=== PATIENT | female | born 1955 | race Caucasian/White ===

== ENCOUNTER 2018-08-28 13:25 | Outpatient (CLI) | payer OTHER | END 2018-08-28 13:26 | disposition home or self-care (01) | LOC: LAB 13:25 | PROVIDERS: ATTEND Physician Assistant | DX: E87.6 Hypokalemia (principal); E11.59 Type 2 diabetes mellitus with other circulatory complications | CPT/HCPCS: 36415; 84132 ==

== ENCOUNTER 2020-05-07 20:39 | Emergency (ER) | payer OTHER ==
[2020-05-07] MEDS ORDERED: ASPIRIN CHEW 81 MG TABLET PO STA (20:51)
[2020-05-07 21:01] LABS: BASOPHILS # (AUTO) 0.1 10^3/uL (0.0-0.1); BASOPHILS % (AUTO) 0.5 %; EOSINOPHILS # (AUTO) 0.3 10^3/uL (0.0-0.7); EOSINOPHILS % (AUTO) 3.2 %; HGB - HEMOGLOBIN 12.6 g/dL (12.0-16.0); LYMPHOCYTES % (AUTO) 42.5 %; MEAN CORPUSCULAR HEMOGLOBIN 27.8 pg (27.0-31.0); MEAN CORPUSCULAR HGB CONC 32.2 g/dL (32.0-36.0); MEAN CORPUSCULAR VOLUME 86.3 fL (81.0-99.0); MEAN PLATELET VOLUME 8.6 fL (7.9-10.8); MONOCYTES # (AUTO) 0.6 10^3/uL (0.0-1.0); MONOCYTES % (AUTO) 6.4 %; NEUTROPHILS # (AUTO) 4.4 10^3/uL (1.5-6.6); NEUTROPHILS % (AUTO) 46.9 %; PLT - PLATELET COUNT 291 10^3/uL (130-450); RED BLOOD COUNT 4.53 10^6/uL (4.20-5.40); RED CELL DISTRIBUTION WIDTH 13.1 % (12.0-15.0); WHITE BLOOD COUNT 9.4 x10^3/uL (4.8-10.8)
--- NOTE | 2020-05-07 21:11 | ED Physician Documentation ---
PD HPI CHEST PAIN - Stated complaint Stated Complaint: CHEST TIGHTNESS - Chief complaint Chief Complaint: Cardiac - History obtained from History obtained from: Patient - History of Present Illness Timing - onset: Enter time (19:40) Timing - onset during: Light activity Timing - duration: Seconds Timing - details: Abrupt onset, Intermittant (episodic) Pain level now: 0 Quality: Other (squeezing, per patient) Radiation: Other (no radiation) Improved by: Nothing Worsened by: Other (no exacerbating factors) Associated symptoms: No: Shortness of air, Diaphoresis, Nausea, Vomiting, Feeling faint / dizzy, General Weakness, Palpitations, Cough Similar symptoms before: Has not had sx before Recently seen: Not recently seen - Additional information Additional information: since 7:40 PM today, patient has had episodes of squeezing sensation in midline lower chest. Initially began when she was unloading boxes from a truck although she says the boxes were light (was not strenuous exertion). She says she has had several more such episodes including while in ED awaiting evaluation. she says the symptoms last no more than one second when she has an episode Review of Systems Cardiac: reports: Chest pain / pressure (episodic chest squeezing, lasting nor more than 1-2 seconds per episode). 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 : Kidney stones HEENT: None Psych: Panic attacks Musculoskeletal: Osteoarthritis Derm: Rosacea - Past Surgical History Past Surgical History: Yes General: Cholecystectomy, Appendectomy - Present Medications Home Medications: Ambulatory Orders Medication Instructions Recorded Confirmed Aspirin [Aspirin EC] 81 mg PO DAILY 03/29/14 03/21/16 Esomeprazole Magnesium [Nexium] 0 mg PO DAILY 03/29/14 03/21/16 Simvastatin 0 mg PO DAILY 03/29/14 03/21/16 Telmisartan [Micardis] 0 mg PO DAILY 03/29/14 03/21/16 Dulaglutide [Trulicity] 05/07/20 Metoprolol Succinate [Toprol Xl] 0 mg PO BID 05/07/20 05/07/20 metFORMIN [Glucophage] BID 05/07/20 - Allergies Allergies/Adverse Reactions: Allergies Allergy/AdvReac Type Severity Reaction Status Date / Time erythromycin base Allergy Nausea Verified 05/07/20 20:53 [Erythromycin Base] Penicillins Allergy Rash Verified 05/07/20 20:53 sulfamethoxazole Allergy Itching Verified 05/07/20 20:53 [From Septra] trimethoprim [From Septra] Allergy Itching Verified 05/07/20 20:53 ranitidine HCl * AdvReac Headache Verified 05/07/20 20:53 [From Zantac] - Social History Does the pt smoke?: No Smoking Status: Never smoker Does the pt drink ETOH?: Yes Does the pt have substance abuse?: No - Immunizations Immunizations are current?: Yes - POLST Patient has POLST: No PD ED PE NORMAL - Vitals Vital signs reviewed: Yes - General General: Alert and oriented X 3, No acute distress, Well developed/nourished - HEENT HEENT: Moist mucous membranes - Neck Neck: Supple, no meningeal sign - Cardiac Cardiac: RRR, No murmur, No gallop, No rub - Respiratory Respiratory: No respiratory distress, Clear bilaterally - Abdomen Abdomen: Soft, Non tender - Derm Derm: Normal color, Warm and dry - Extremities Extremities: No edema Results - Vitals Vitals: Vital Signs - 24 hr 05/07/20 05/07/20 05/07/20 20:50 21:14 21:30 Temperature 36.9 C 36.8 C Heart Rate 91 92 90 Respiratory 20 20 Rate Blood Pressure 147/71 H 164/134 H 132/55 H O2 Saturation 100 98 98 05/07/20 21:57 Temperature 36.5 C Heart Rate 89 Respiratory 13 Rate Blood Pressure 119/49 L O2 Saturation 98 Oxygen O2 Source Room air - EKG (time done) No standard instances Rate: Rate (enter#) (93) Rhythm: NSR [place]: Normal QRS: LVH Ischemia: Normal ST segments, Q waves (isolated to lead III) - Labs Labs: Laboratory Tests 05/07/20 05/07/20 05/07/20 20:55 20:55 20:55 WBC 9.4 RBC 4.53 Hgb 12.6 Hct 39.1 MCV 86.3 MCH 27.8 MCHC 32.2 RDW 13.1 Plt Count 291 MPV 8.6 Neut # (Auto) 4.4 Lymph # (Auto) 4.0 H [place] # (Auto) 0.6 Eos # (Auto) 0.3 Baso # (Auto) 0.1 Absolute Nucleated RBC 0.00 Nucleated RBC % 0.0 Sodium 136 Potassium 4.3 Chloride 99 L Carbon Dioxide 26 Anion Gap 11.0 BUN 16 Creatinine 0.7 Estimated GFR (MDRD) 85 L Glucose 217 H Calcium 9.2 Total Bilirubin 0.7 AST 19 ALT 21 Alkaline Phosphatase 75 Troponin I High Sens < 2.3 L Total Protein 7.3 Albumin 4.1 Globulin 3.2 Albumin/Globulin Ratio 1.3 Lipase 58 H - Rads (name of study) chest xray Radiology: Prelim report reviewed, See rad report PD MEDICAL DECISION MAKING - ED course Complexity details: reviewed results, re-evaluated patient, considered differential, d/w patient ED course: reassuring w/u including EKG, CXR, and blood work that includes normal high sensitivity troponin. Her symptom of a squeezing sensation in her lower midline chest that lasts about 1 second per episode is not s/o CAD or other emergent process Departure - Departure Disposition: 01 Home, Self Care Clinical Impression: Chest pain Condition: Good Instructions: ED Chest Pain Atypical Unkn Cause Comments: Follow up with your process control technician; call to arrange for next available appointment Discharge Date/Time: 05/07/20 22:01
[2020-05-07 21:13] LABS: ALBUMIN 4.1 g/dL (3.2-5.5); ALBUMIN/GLOBULIN RATIO 1.3 (1.0-2.2); BILIRUBIN,TOTAL 0.7 mg/dL (0.2-1.0); CALCIUM 9.2 mg/dL (8.5-10.3); CREATININE 0.7 mg/dL (0.4-1.0); TOTAL PROTEIN 7.3 g/dL (6.7-8.2)
--- NOTE | 2020-05-07 21:25 | XRAY Report ---
PROCEDURE: Chest 1 View X-Ray INDICATIONS: Chest Pain TECHNIQUE: One view of the chest was acquired. COMPARISON: CXR 09/30/2015. FINDINGS: Surgical changes and devices: None. Lungs and pleura: No pleural effusions or pneumothorax. Lungs are clear. Mediastinum: Mediastinal contours appear normal and unchanged. Heart size is normal. Bones and chest wall: No suspicious bony lesions. Overlying soft tissues appear unremarkable. IMPRESSION: No acute cardiopulmonary abnormality. Reviewed by: Mt Payton MD on 05/07/2020 9:24 PM PDT Approved by: Mt Payton MD on 05/07/2020 9:24 PM PDT Station ID: [id number]
[2020-05-07 21:59] VITALS: BP 119/49
== END 2020-05-07 22:01 | disposition home or self-care (01) ==
LOC: ED 20:39
DX: R07.89 Other chest pain (principal); E11.9 Type 2 diabetes mellitus without complications; Z79.84 Long term (current) use of oral hypoglycemic drugs; Z79.82 Long term (current) use of aspirin
CPT/HCPCS: 36415; 71045; 80053; 83690; 84484; 85025; 93005; 99284; A9270

== ENCOUNTER 2020-09-12 20:11 | Emergency (ER) | payer OTHER ==
--- NOTE | 2020-09-12 20:23 | ED Physician Documentation ---
History of Present Illness - Stated complaint Stated Complaint: HEART PALPITATIONS - Chief complaint Chief Complaint: Cardiac - History obtained from History obtained from: Patient - History of Present Illness Timing: Enter time (16:00), Today Pain level max: 0 Pain level now: 0 Improved by: nothing Worsened by: no exacerbating factors - Additonal information Additional information: c/o frequent palpitations since 4 PM today. She has had similar palpitations many times in the past and has had testing both inpatient, in ED, and outpatient settings; thus far, only PVCs have been noted, and no etiology of PVCs has been found. She is on a beta-enoch which at one time was doubled in dose, but this resulted in hypotension and thus resumed on previous dose. She says she has episodes of these palpitations every few months without apparent causative /inciting factor(s). She denies any pain. Review of Systems Constitutional: denies: Fever, Chills, Sweats Cardiac: reports: Palpitations. 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 : Kidney stones HEENT: None Psych: Panic attacks Musculoskeletal: Osteoarthritis Derm: Rosacea - Past Surgical History Past Surgical History: Yes General: Cholecystectomy, Appendectomy - Present Medications Home Medications: Ambulatory Orders Medication Instructions Recorded Confirmed Telmisartan [Micardis] 20 mg PO DAILY 03/29/14 09/12/20 metFORMIN [Glucophage] 1,000 mg PO BID 05/07/20 09/12/20 Aspirin [Aspirin EC] 81 mg PO DAILY 09/12/20 09/12/20 Dulaglutide [Trulicity] 1.5 mg SQ DAILY 09/12/20 09/12/20 LORazepam [Ativan] 0.5 - 1 mg PO HS PRN #14 09/12/20 Magnesium Oxide 500 mg PO DAILY 09/12/20 09/12/20 Metoprolol Succinate [Toprol Xl] 25 mg PO BID 09/12/20 09/12/20 Simvastatin [Zocor] 20 mg PO HS 09/12/20 09/12/20 Ubidecarenone/Vit E Acet [Co Q-10 2 each PO DAILY 09/12/20 09/12/20 100 mg Softgel] - Allergies Allergies/Adverse Reactions: Allergies Allergy/AdvReac Type Severity Reaction Status Date / Time erythromycin base Allergy Nausea Verified 09/12/20 20:14 [Erythromycin Base] Penicillins Allergy Rash Verified 09/12/20 20:14 sulfamethoxazole Allergy Itching Verified 09/12/20 20:14 [From Septra] trimethoprim [From Septra] Allergy Itching Verified 09/12/20 20:14 ranitidine HCl * AdvReac Headache Verified 09/12/20 20:14 [From Zantac] - Social History Does the pt smoke?: No Smoking Status: Never smoker Does the pt drink ETOH?: Yes Does the pt have substance abuse?: No - Immunizations Immunizations are current?: Yes - POLST Patient has POLST: No PD ED PE NORMAL - Vitals Vital signs reviewed: Yes - General General: Alert and oriented X 3, No acute distress, Well developed/nourished - HEENT HEENT: Moist mucous membranes - Neck Neck: Supple, no meningeal sign - Cardiac Cardiac: RRR, No murmur, No gallop, No rub - Respiratory Respiratory: No respiratory distress, Clear bilaterally - Abdomen Abdomen: Soft, Non tender - Extremities Extremities: No edema Results - Vitals Vitals: Vital Signs - 24 hr 09/12/20 09/12/20 09/12/20 20:14 20:52 21:00 Temperature 36.5 C Heart Rate 108 H 104 H 101 H Respiratory 24 18 18 Rate Blood Pressure 153/81 H 162/86 H 162/86 H O2 Saturation 99 97 100 09/12/20 09/12/20 21:30 22:00 Temperature Heart Rate 97 74 Respiratory 22 17 Rate Blood Pressure 162/89 H 107/71 O2 Saturation 98 100 Oxygen O2 Source Room air - EKG (time done) No standard instances Rate: Rate (enter#) (105) Rhythm: Sinus tachycardia Ischemia: Q waves (isolated QIII), Non specific changes (V2-V4 (inverted/flat Ts)) Other comments: Other comments (PAC) Compare to prior EKG: Unchanged from prior EKG Computer interpretation: Agree with computer - Labs Labs: Laboratory Tests 09/12/20 09/12/20 09/12/20 20:30 20:30 20:30 WBC 9.5 RBC 5.07 Hgb 13.9 Hct 43.7 MCV 86.2 MCH 27.4 MCHC 31.8 L RDW 12.9 Plt Count 308 MPV 8.4 Neut # (Auto) 4.6 Lymph # (Auto) 4.1 H [place] # (Auto) 0.7 Eos # (Auto) 0.2 Baso # (Auto) 0.0 Absolute Nucleated RBC 0.00 Nucleated RBC % 0.0 Sodium 137 Potassium 4.0 Chloride 97 L Carbon Dioxide 24 Anion Gap 16.0 H BUN 13 Creatinine 0.7 Estimated GFR (MDRD) 85 L Glucose 238 H Calcium 9.8 Magnesium Total Bilirubin 0.5 AST 34 ALT 42 Alkaline Phosphatase 95 Troponin I High Sens < 2.3 L Total Protein 7.4 Albumin 4.1 Globulin 3.3 Albumin/Globulin Ratio 1.2 Lipase 48 09/12/20 20:30 WBC RBC Hgb Hct MCV MCH MCHC RDW Plt Count MPV Neut # (Auto) Lymph # (Auto) [place] # (Auto) Eos # (Auto) Baso # (Auto) Absolute Nucleated RBC Nucleated RBC % Sodium Potassium Chloride Carbon Dioxide Anion Gap BUN Creatinine Estimated GFR (MDRD) Glucose Calcium Magnesium 1.7 Total Bilirubin AST ALT Alkaline Phosphatase Troponin I High Sens Total Protein Albumin Globulin Albumin/Globulin Ratio Lipase - Rads (name of study) chest xray Radiology: Prelim report reviewed, See rad report PD MEDICAL DECISION MAKING - ED course Complexity details: reviewed results, re-evaluated patient, considered differential, d/w patient ED course: occasional PACs on monitor which correlate with patient's palpitations (she would say that she was having a palpitation when a PAC appeared on monitor). The PACs were only occasional and there were no paired beats nor runs of arrhythmia. Reassuring blood tests. No emergent condition identified at this time and no specific treatment is indicated, particularly considering her reported history of hypotension with high dose of beta-enoch. Departure - Departure Disposition: 01 Home, Self Care Clinical Impression: Palpitations Condition: Good Instructions: ED Palpitations Follow-Up: GISSELLE ALEXANDER MD [Primary Care Provider] - Prescriptions: LORazepam [Ativan] 0.5 - 1 mg PO HS PRN #14 PRN Reason: Insomnia Discharge Date/Time: 09/12/20 22:44
[2020-09-12 20:36] LABS: BASOPHILS % (AUTO) 0.4 %; EOSINOPHILS # (AUTO) 0.2 10^3/uL (0.0-0.7); EOSINOPHILS % (AUTO) 2.2 %; HGB - HEMOGLOBIN 13.9 g/dL (12.0-16.0); LYMPHOCYTES # (AUTO) 4.1 10^3/uL (1.5-3.5); LYMPHOCYTES % (AUTO) 42.5 %; MEAN CORPUSCULAR HEMOGLOBIN 27.4 pg (27.0-31.0); MEAN CORPUSCULAR HGB CONC 31.8 g/dL (32.0-36.0); MEAN CORPUSCULAR VOLUME 86.2 fL (81.0-99.0); MEAN PLATELET VOLUME 8.4 fL (7.9-10.8); MONOCYTES # (AUTO) 0.7 10^3/uL (0.0-1.0); MONOCYTES % (AUTO) 6.8 %; NEUTROPHILS # (AUTO) 4.6 10^3/uL (1.5-6.6); NEUTROPHILS % (AUTO) 47.9 %; PLT - PLATELET COUNT 308 10^3/uL (130-450); RED BLOOD COUNT 5.07 10^6/uL (4.20-5.40); RED CELL DISTRIBUTION WIDTH 12.9 % (12.0-15.0); WHITE BLOOD COUNT 9.5 x10^3/uL (4.8-10.8)
[2020-09-12 20:54] LABS: ALBUMIN 4.1 g/dL (3.2-5.5); ALBUMIN/GLOBULIN RATIO 1.2 (1.0-2.2); BILIRUBIN,TOTAL 0.5 mg/dL (0.2-1.0); CALCIUM 9.8 mg/dL (8.5-10.3); CREATININE 0.7 mg/dL (0.4-1.0); TOTAL PROTEIN 7.4 g/dL (6.7-8.2)
--- NOTE | 2020-09-12 20:58 | XRAY Report ---
PROCEDURE: Chest 1 View X-Ray INDICATIONS: Chest pain TECHNIQUE: One view of the chest was acquired. COMPARISON: Prior chest plain film 05/07/2020 FINDINGS: Surgical changes and devices: None. Lungs and pleura: No pleural effusions or pneumothorax. Lungs are clear. Mediastinum: Mediastinal contours appear normal. Heart size is normal. Bones and chest wall: No suspicious bony lesions. Overlying soft tissues appear unremarkable. IMPRESSION: Normal for age, source of current symptoms is not seen. Reviewed by: Joss Crandall MD on 09/12/2020 8:57 PM PST Approved by: Joss Crandall MD on 09/12/2020 8:57 PM PST Station ID: [id number]
[2020-09-12 22:22] VITALS: BP 107/71
== END 2020-09-12 22:44 | disposition home or self-care (01) ==
LOC: ED 20:11
DX: R00.2 Palpitations (principal); R00.0 Tachycardia, unspecified; E11.9 Type 2 diabetes mellitus without complications; Z79.84 Long term (current) use of oral hypoglycemic drugs
CPT/HCPCS: 36415; 80053; 83690; 83735; 84484; 85025; 93005; 99284

== ENCOUNTER 2021-09-26 17:46 | Emergency (ER) | payer OTHER ==
[2021-09-26 18:13] LABS: BASOPHILS % (AUTO) 0.4 %; EOSINOPHILS # (AUTO) 0.3 10^3/uL (0.0-0.7); EOSINOPHILS % (AUTO) 3.2 %; HCT - HEMATOCRIT 42.4 % (37.0-47.0); HGB - HEMOGLOBIN 13.9 g/dL (12.0-16.0); LYMPHOCYTES # (AUTO) 4.3 10^3/uL (1.5-3.5); LYMPHOCYTES % (AUTO) 46.4 %; MEAN CORPUSCULAR HEMOGLOBIN 27.9 pg (27.0-31.0); MEAN CORPUSCULAR HGB CONC 32.8 g/dL (32.0-36.0); MEAN CORPUSCULAR VOLUME 85.1 fL (81.0-99.0); MEAN PLATELET VOLUME 8.7 fL (7.9-10.8); MONOCYTES # (AUTO) 0.6 10^3/uL (0.0-1.0); NEUTROPHILS # (AUTO) 4.1 10^3/uL (1.5-6.6); NEUTROPHILS % (AUTO) 43.8 %; PLT - PLATELET COUNT 335 10^3/uL (130-450); RED BLOOD COUNT 4.98 10^6/uL (4.20-5.40); RED CELL DISTRIBUTION WIDTH 13.2 % (12.0-15.0); WHITE BLOOD COUNT 9.3 x10^3/uL (4.8-10.8)
--- NOTE | 2021-09-26 18:27 | ED Physician Documentation ---
PD HPI CHEST PAIN - Stated complaint Stated Complaint: CHEST PAIN - Chief complaint Chief Complaint: Cardiac - History obtained from History obtained from: Patient - History of Present Illness Timing - onset: Last night Timing - duration: Seconds (1-2) Quality: No: Pressure, Tightness, Aching, Sharp, Tearing, Dull, Stabbing, Throbbing, Indigestion, Like prior ACS, Pain Location: Left chest Radiation: No: Jaw, Neck, Back, Abdominal, Left upper extremity, Right upper extremity Improved by: Nothing. No: Rest, Oxygen, Nitro, ASA, Antacids, Other medication Worsened by: No: Exertion, Inspiration, Eating, Movement, Palpation, Position Associated symptoms: No: Shortness of air, Diaphoresis, Nausea, Vomiting, Feeling faint / dizzy, General Weakness, Palpitations, Cough - Additional information Additional information: 66-year-old female with chest pain since last night. She describes it as sharp, lasting 1 to 2 seconds. She then feels a dull ache. Currently is asymptomatic. Nothing makes it better or worse. Has had similar symptoms previously and told they were premature ventricular contractions. She states that this pain felt slightly different however. 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 : Kidney stones HEENT: None Psych: Panic attacks Musculoskeletal: Osteoarthritis Derm: Rosacea - Past Surgical History Past Surgical History: Yes General: Cholecystectomy, Appendectomy - Present Medications Home Medications: Ambulatory Orders Medication Instructions Recorded Confirmed metFORMIN [Glucophage] 1,000 mg PO BID 05/07/20 09/26/21 Aspirin [Aspirin EC] 81 mg PO DAILY 09/12/20 09/26/21 Dulaglutide [Trulicity] 1.5 mg SQ ONCE 09/12/20 09/26/21 Magnesium Oxide 500 mg PO DAILY 09/12/20 09/26/21 Metoprolol Succinate [Toprol Xl] 25 mg PO BID 09/12/20 09/26/21 Simvastatin [Zocor] 20 mg PO HS 09/12/20 09/26/21 Ubidecarenone/Vit E Acet [Co Q-10 2 each PO DAILY 09/12/20 09/26/21 100 mg Softgel] - Allergies Allergies/Adverse Reactions: Allergies Allergy/AdvReac Type Severity Reaction Status Date / Time erythromycin base Allergy Nausea Verified 09/26/21 17:52 [Erythromycin Base] Penicillins Allergy Rash Verified 09/26/21 17:52 sulfamethoxazole Allergy Itching Verified 09/26/21 17:52 [From Septra] trimethoprim [From Septra] Allergy Itching Verified 09/26/21 17:52 ranitidine HCl * AdvReac Headache Verified 09/26/21 17:52 [From Zantac] - Social History Does the pt smoke?: No Smoking Status: Never smoker Does the pt drink ETOH?: Yes Does the pt have substance abuse?: No - Immunizations Immunizations are current?: Yes - POLST Patient has POLST: No PD ED PE NORMAL - Vitals Vital signs reviewed: Yes - General General: Alert and oriented X 3, No acute distress, Well developed/nourished - HEENT HEENT: Moist mucous membranes - Neck Neck: Supple, no meningeal sign - Cardiac Cardiac: RRR, No murmur, Strong equal pulses - Respiratory Respiratory: No respiratory distress, Clear bilaterally - Abdomen Abdomen: Soft, Non tender, Non distended - Derm Derm: Warm and dry - Extremities Extremities: No edema, No calf tenderness / cord - Neuro Neuro: Alert and oriented X 3 - Psych Psych: Normal mood, Normal affect - Free text exam Free text exam: No chest wall tenderness. Results - Vitals Vitals: Vital Signs - 24 hr 09/26/21 17:53 Temperature 36.4 C L Heart Rate 93 Respiratory 18 Rate Blood Pressure 176/80 H O2 Saturation 98 Oxygen O2 Source Room air - EKG (time done) 1758 Rate: Rate (enter#) (92) Rhythm: NSR [place]: Normal Intervals: Normal [place] QRS: Normal Ischemia: Normal ST segments, Q waves (III, aVF) - Labs Labs: Laboratory Tests 09/26/21 09/26/21 09/26/21 18:05 18:05 18:05 WBC 9.3 RBC 4.98 Hgb 13.9 Hct 42.4 MCV 85.1 MCH 27.9 MCHC 32.8 RDW 13.2 Plt Count 335 MPV 8.7 Neut # (Auto) 4.1 Lymph # (Auto) 4.3 H [place] # (Auto) 0.6 Eos # (Auto) 0.3 Baso # (Auto) 0.0 Absolute Nucleated RBC 0.00 Nucleated RBC % 0.0 Sodium 137 Potassium 4.2 Chloride 102 Carbon Dioxide 24 Anion Gap 11.0 BUN 19 Creatinine 0.6 Estimated GFR (MDRD) 101 Glucose 116 H Calcium 9.9 Total Bilirubin 0.5 AST 20 ALT 21 Alkaline Phosphatase 58 Troponin I High Sens 2.5 Total Protein 7.9 Albumin 4.5 Globulin 3.4 Albumin/Globulin Ratio 1.3 Lipase 84 H - Rads (name of study) cxr Radiology: Final report received, EMP read contemporaneously, See rad report (No acute disease) PD MEDICAL DECISION MAKING - ED course Complexity details: reviewed results, re-evaluated patient, considered differential (No ST elevation ND, no aortic dissection, no PE, no tension pneumothorax, no aortic aneurysm), d/w patient ED course: 66-year-old female with chest pain of unclear etiology. Symptoms are not consistent with acute coronary syndrome or PE. We will continue supportive care and have her follow-up with her doctor for further care. No acute findings on chest x-ray, EKG, telemetry. Symptoms did occur in the emergency department and there were no changes on telemetry. The pain only lasts for 1 to 2 seconds. Patient counseled regarding signs and symptoms for which I believe and urgent re-evaluation would be necessary. Patient with good understanding of and agreement to plan and is comfortable going home at this time This document was made in part using voice recognition software. While efforts are made to proofread this document, sound alike and grammatical errors may occur. Departure - Departure Disposition: 01 Home, Self Care Clinical Impression: Chest pain Qualifiers: Chest pain type: unspecified Qualified Code(s): R07.9 - Chest pain, unspecified Condition: Good Instructions: ED Chest Pain Atypical Unkn Cause Follow-Up: GISSELLE ALEXANDER MD [Primary Care Provider] - Within 1 week Comments: The cause of your symptoms is unclear today. Your testing does not reveal any acute abnormalities. Please return if you worsen. I would recommend Motrin or Tylenol as needed for pain.
[2021-09-26 18:32] LABS: ALBUMIN 4.5 g/dL (3.2-5.5); ALBUMIN/GLOBULIN RATIO 1.3 (1.0-2.2); BILIRUBIN,TOTAL 0.5 mg/dL (0.2-1.0); CALCIUM 9.9 mg/dL (8.5-10.3); CREATININE 0.6 mg/dL (0.4-1.0); POTASSIUM 4.2 mmol/L (3.5-5.0); TOTAL PROTEIN 7.9 g/dL (6.7-8.2)
--- NOTE | 2021-09-26 18:38 | XRAY Report ---
PROCEDURE: Chest 1 View X-Ray INDICATIONS: Chest Pain TECHNIQUE: One view of the chest was acquired. COMPARISON: 09/12/2020 FINDINGS: Surgical changes and devices: None. Lungs and pleura: No pleural effusions or pneumothorax. Lungs are clear. Mediastinum: Mediastinal contours appear normal. Heart size is normal. Bones and chest wall: No suspicious bony lesions. Overlying soft tissues appear unremarkable. IMPRESSION: Stable examination of the chest. No acute cardiopulmonary abnormalities or focal airspace disease. Reviewed by: Kostas Frances MD on 09/26/2021 6:37 PM PST Approved by: Kostas Frances MD on 09/26/2021 6:37 PM PST Station ID: [id number]
[2021-09-26 19:17] VITALS: BP 126/72
== END 2021-09-26 19:21 | disposition home or self-care (01) ==
LOC: ED 17:46
DX: R07.9 Chest pain, unspecified (principal); E11.9 Type 2 diabetes mellitus without complications; Z79.84 Long term (current) use of oral hypoglycemic drugs
CPT/HCPCS: 36415; 80053; 83690; 84484; 85025; 93005; 99284

== ENCOUNTER 2023-01-25 09:37 | Outpatient (CLI) | payer MEDICARE, OTHER ==
--- NOTE | 2023-01-28 08:55 | Mammography Report ---
BILATERAL DIGITAL SCREENING MAMMOGRAM 3D/2D: 01/25/2023 CLINICAL: Routine screening. Comparison is made to exams dated: 10/17/2021 mammogram, 05/13/2017 mammogram, 12/25/2018 mammogram, mammogram, and 03/25/2012 mammogram - [facility]. There are scattered areas of fibroglandular density in both breasts (category b / 25%-50% glandular t issue). No significant masses, calcifications, or other findings are seen in either breast. There has been no significant interval change. IMPRESSION: NEGATIVE There is no mammographic evidence of malignancy. A 1 year screening mammogram is recommended. Based on the Tyrer Cuzick model (a risk assessment model) the patients lifetime risk is 4.4% and her 10 year risk is 2.1%. According to the ACR, ACS, and NCCN guidelines, an annual breast MRI exam wen g with mammogram is recommended if the patients lifetime risk is 20% or greater. This exam was interpreted at Station ID: [id number]. NOTE: For mammograms, a report in lay terms will be sent to the patient. Approximately 15% of breast malignancies will not be visualized mammographically. In the management of a palpable breast mass, a negative mammogram must not discourage biopsy of a clinically suspicious lesion. Electronically Signed By: Kostas patino/isaac:01/25/2023 10:18:30 letter sent: No_Letter ACR BI-RADS Category 1: Negative 3341F PARENCHYMAL PATTERN: (A) - The breast(s) demonstrate(s) scattered fibroglandular densities. BI-RADS CATEGORY: (1) - 1 Mammogram [id number] 1 year screening LATERALITY: (B)
== END 2023-01-25 09:38 | disposition home or self-care (01) ==
LOC: DI 09:37
PROVIDERS: ATTEND Internal Medicine
DX: Z12.31 Encounter for screening mammogram for malignant neoplasm of breast (principal)

== ENCOUNTER 2023-01-30 08:11 | Outpatient (CLI) | payer MEDICARE, OTHER ==
--- NOTE | 2023-01-30 14:59 | DEXA Report ---
PROCEDURE: Dexa Spine and/or Hip INDICATIONS: POST MENOPAUSAL TECHNIQUE: Dual energy x-ray absorptiometry (DXA) was performed on a [employer] System. Regions measur ed are the AP Spine, femoral neck, and if needed forearm. COMPARISON: None FINDINGS: Lumbar Spine: Bone Mineral Density 1.11 g/cm/cm,T score -0.6. Normal Left Femoral Neck: Bone Mineral Density 0.885 g/cm/cm, T score -1.1. Minimal osteopenia Left Hip: Bone Mineral Density 1.049 g/cm/cm,T score 0.3. Normal (T score greater or equal to -1.0: NORMAL) (T score from -1.1 to -2.4: OSTEOPENIA) (T score less than or equal to -2.5 to: OSTEOPOROSIS) Impression: By WHO criteria, this patient has low bone density (osteopenia)of the hip. Patients with diagnosis of osteoporosis or osteopenia should have regular bone mineral density assess ment. For those eligible for Medicare, routine testing is allowed once every 2 years. Testing frequ ency can be increased for patients who have rapidly progressing disease or for those who are receivin g medical therapy to restore bone mass. Reviewed by: Sendy Barrow MD on 01/30/2023 2:58 PM PDT Approved by: Sendy Barrow MD on 01/30/2023 2:58 PM PDT Station ID: [id number]
== END 2023-01-30 08:12 | disposition home or self-care (01) ==
LOC: DI 08:11
PROVIDERS: ATTEND Internal Medicine
DX: M85.88 Other specified disorders of bone density and structure, other site (principal)

== ENCOUNTER 2024-03-03 12:36 | Outpatient (CLI) | payer MEDICARE, OTHER ==
--- NOTE | 2024-03-03 16:32 | XRAY Report ---
PROCEDURE: Foot 3+V RT INDICATIONS: RIGHT FOOT PAIN TECHNIQUE: 3 views of the foot were acquired. COMPARISON: None. FINDINGS: Bones: Mild DJD of the first metatarsophalangeal joint. No acute fracture subluxation seen. No susp icious bony lesions. Plantar calcaneal spur. Soft tissues: No tibiotalar joint effusion. Achilles tendon appears unremarkable. IMPRESSION: DJD of the first metatarsophalangeal joint and plantar calcaneal spur Reviewed by: Pastor Jett MD on 03/03/2024 4:30 PM PDT Approved by: Pastor Jett MD on 03/03/2024 4:30 PM PDT Station ID: [id number]
== END 2024-03-03 12:37 | disposition home or self-care (01) ==
LOC: DI 12:36
PROVIDERS: ATTEND Student in an Organized Health Care Education/Training Program
DX: M18.11 Unilateral primary osteoarthritis of first carpometacarpal joint, right hand (principal); M77.31 Calcaneal spur, right foot

== ENCOUNTER 2024-03-11 08:00 | Outpatient (CLI) | payer MEDICARE, OTHER | END 2024-03-11 23:59 | disposition home or self-care (01) | LOC: LAB.N 08:00 | PROVIDERS: ATTEND Physician Assistant Medical | DX: N39.0 Urinary tract infection, site not specified (principal) | CPT/HCPCS: 87086 ==